=== PATIENT | female | born 1960 | race Caucasian/White ===

== ENCOUNTER 2021-06-03 15:13 | Emergency (ER) | payer MEDICAID ==
[2021-06-03] MEDS ORDERED: Oxymetazoline 0.05% Nasal Spray 15 ML Bottle ONE (15:36)
== END 2021-06-03 16:45 | disposition home or self-care (01) ==
LOC: LB.ED 15:13
DX: R04.0 Epistaxis (principal); Z79.82 Long term (current) use of aspirin; Z87.891 Personal history of nicotine dependence
CPT/HCPCS: 30903; 36415; 85025; 99283; 99283-25; A9270-GY

== ENCOUNTER 2021-08-24 09:50 | Emergency (ER) | payer MEDICAID ==
[2021-08-24] MEDS ORDERED: traMADol 50 MG Tab ONE (11:00)
[2021-08-24] MEDS ORDERED: Amoxicillin/Clavulanate K 875-125 MG Tab ONE (11:00)
[2021-08-24] MEDS: Diphtheria,Pertussis(Acell),Tetanus Vaccine 0.5 ML SDV IM ONE (11:15)
== END 2021-08-24 11:28 | disposition home or self-care (01) ==
LOC: LB.ED 09:50
DX: S61.451A Open bite of right hand, initial encounter (principal); Z23 Encounter for immunization; W54.0XXA Bitten by dog, initial encounter
CPT/HCPCS: 90471; 90715; 99281; 99283; A9270

== ENCOUNTER 2023-02-25 19:51 | Emergency (ER) | payer MEDICAID ==
[2023-02-25] MEDS ORDERED: Sodium Chloride 0.9% 10 ML Syringe FLUSH PRN (19:58)
[2023-02-25] MEDS ORDERED: cefTRIAXone 1 GM Vial IVPUSH ONE (19:59)
[2023-02-25] MEDS ORDERED: Ondansetron 4 MG/2 ML SDV IVPUSH ONE (19:59)
[2023-02-25] MEDS ORDERED: Diphtheria,Pertussis(Acell),Tetanus Vaccine 0.5 ML Syringe IM ONE (20:03)
[2023-02-25 20:12] LABS: BASOPHILS ABSOLUTE AUTO 0.07 K/uL (0.02-0.10); BASOPHILS PERCENT AUTO 0.6 % (0.0-0.5); EOSINOPHILS ABSOLUTE AUTO 0.09 K/uL (0.04-0.40); EOSINOPHILS PERCENT AUTO 0.7 % (1.0-5.0); HEMATOCRIT 44.7 % (37.0-47.0); HEMOGLOBIN 14.4 g/dL (11.5-16.5); LYMPHOCYTES ABSOLUTE AUTO 2.51 K/uL (1.50-4.00); LYMPHOCYTES PERCENT AUTO 20.7 % (20.0-40.0); MEAN CORPUSCULAR HEMOGLOBIN 28.1 pg (27.0-32.0); MEAN CORPUSCULAR HGB CONC 32.2 g/dL (31.0-35.0); MEAN CORPUSCULAR VOLUME 87 fL (76-96); MEAN PLATELET VOLUME 8.5 fL (6.0-10.0); MONOCYTES ABSOLUTE AUTO 1.01 K/uL (0.20-0.80); MONOCYTES PERCENT AUTO 8.3 % (3.0-10.0); NEUTROPHILS ABSOLUTE AUTO 8.43 K/uL (2.00-7.50); NEUTROPHILS PERCENT AUTO 69.7 % (45.0-70.0); PLATELET COUNT,PLT 244 K/uL (150-500); RED BLOOD CELL COUNT 5.12 M/uL (3.80-5.80); RED CELL DISTRIBUTION WIDTH 15.2 % (11.0-16.0); WHITE BLOOD CELL COUNT,WBC 12.1 K/uL (4.0-11.0)
[2023-02-25 20:27] LABS: A/G RATIO 0.9 (0.8-2.0); ALANINE AMINOTRANSFERASE,ALT 34 U/L (12-78); ALBUMIN 3.5 g/dL (3.4-5.0); ALKALINE PHOSPHATASE 93 U/L (46-116); ASPARTATE AMNIOTRANSFERASE,AST 16 U/L (15-37); BILIRUBIN TOTAL 0.3 mg/dL (0.0-1.0); BLOOD UREA NITROGEN,BUN 31 mg/dL (8-26); BUN/CREATININE RATIO 27.4 (6-25); CALCIUM 8.8 mg/dL (8.5-10.1); CARBON DIOXIDE,CO2 24.6 mmol/L (21.0-32.0); CHLORIDE,CL 93 mmol/L (98-107); CREATININE 1.13 mg/dL (0.55-1.02); ESTIMATED GFR 56 mL/min (>60); GLUCOSE RANDOM 206 mg/dL (74-100); MAGNESIUM 2.4 mg/dL (1.8-2.4); POTASSIUM,K 3.6 mmol/L (3.5-5.1); PROTEIN TOTAL,TP 7.3 g/dL (6.4-8.2); SODIUM,NA 132 mmol/L (136-145)
== END 2023-02-25 21:00 ==
LOC: LB.ED 19:51
DX: S01.85XA Open bite of other part of head, initial encounter (principal); F10.129 Alcohol abuse with intoxication, unspecified; I10 Essential (primary) hypertension; Z90.710 Acquired absence of both cervix and uterus; Z23 Encounter for immunization; W54.0XXA Bitten by dog, initial encounter
CPT/HCPCS: 36415; 80053; 80307; 83735; 85025; 90471; 90715; 96374; 96375; 99285-25; J0696; J2405

== ENCOUNTER 2023-11-09 08:20 | Emergency (ER) | payer MEDICAID ==
[2023-11-09 10:38] LABS: INFLUENZA A NAA NEGATIVE (NEGATIVE); INFLUENZA B NAA NEGATIVE (NEGATIVE); RESPIRATORY SYNCYTIAL VIR NAA NEGATIVE (NEGATIVE)
[2023-11-09 10:43] LABS: CORONAVIRUS COVID-19 NAA POSITIVE (NEGATIVE)
[2023-11-09 11:40] VITALS: BP 124/73; PULSE 80
== END 2023-11-09 10:19 | disposition home or self-care (01) ==
LOC: LB.ED 08:20
DX: U07.1 COVID-19 (principal); I10 Essential (primary) hypertension; J44.9 Chronic obstructive pulmonary disease, unspecified; Z87.891 Personal history of nicotine dependence; Z79.82 Long term (current) use of aspirin; Z79.899 Other long term (current) drug therapy
CPT/HCPCS: 0241U; 99283

== ENCOUNTER 2023-11-15 09:21 | Emergency (ER) | payer MEDICAID ==
[2023-11-15] MEDS ORDERED: Sodium Chloride 0.9% 10 ML Syringe FLUSH PRN (09:49)
[2023-11-15] MEDS: Ondansetron 4 MG/2 ML SDV IVPUSH ONE (10:37)
[2023-11-15] MEDS: Morphine 2 MG/ML SYRINGE IVPUSH ONE ×2 (10:37→10:39)
[2023-11-15] MEDS: Midazolam 1 MG/ML 2 ML SDV IVPUSH ONE (11:01)
[2023-11-15] MEDS: Ketorolac 30 MG/ML SDV IVPUSH ONE (11:45)
[2023-11-15] MEDS: diazePAM 5 MG/ML MDV IV ONE (12:00)
== END 2023-11-15 13:07 | disposition home or self-care (01) ==
LOC: LB.ED 09:21
DX: S43.014A Anterior dislocation of right humerus, initial encounter (principal); S43.034A Inferior dislocation of right humerus, initial encounter; I10 Essential (primary) hypertension; Z79.82 Long term (current) use of aspirin; Z79.899 Other long term (current) drug therapy; W01.0XXA Fall on same level from slipping, tripping and stumbling without subsequent striking against object, initial encounter
CPT/HCPCS: 23650; 73030; 96374; 96375; 99283; J1885; J2250; J2270; J2405; J3360